=== PATIENT | male | born 1985 | race Caucasian/White ===

== ENCOUNTER 2017-05-30 22:44 | Emergency (ER) | payer OTHER ==
--- NOTE | 2017-05-30 23:38 | ED Physician Documentation ---
General Adult - HISTORIAN Historian: patient - HPI Stated Complaint: LAC Chief Complaint: Laceration/Recheck/Suture Additional Information: 1 cm superficial lac dorsum lt hand working on auto-wrench slipped Onset: hours (1899) Timing: still present (bles significantly dawson at first) Severity: mild Further Comments: yes (disc sutures verses dermabond - pt chose dermabond) Last known Well Code/Unknown Code: Known - ROS CONST: no problems EYES/ENT: none CVS/RESP: none. denies: chest pain, shortness of breath MS/SKIN/LYMPH: none NEURO/PSYCH: denies: headache, fainting, dizziness, tingling, numbness - PAST HX Past History: none Other History: none Surgeries/Procedures: none Immunizations: tetanus (utd), UTD Allergies/Adverse Reactions: Allergies Allergy/AdvReac Type Severity Reaction Status Date / Time Penicillins Allergy Intermediate Hives Verified 05/30/17 22:59 Home Medications: Ambulatory Orders Medication Instructions Recorded NK [NK] 05/30/17 - SOCIAL HX Smoking History: less than 1 pack/day Alcohol Use: none Drug Use: none - FAMILY HX Family History: No - VITAL SIGNS Vital Signs: Vital Signs Temp Pulse Resp BP Pulse Ox 70 16 134/86 98 05/30/17 22:44 05/30/17 22:44 05/30/17 22:44 05/30/17 22:44 - REVIEWED ASSESSMENTS Nursing Assessment Reviewed: Yes Vitals Reviewed: Yes Procedures Wound Location: upper extremity Wound's Depth, Shape: superficial Wound Explored: clean Betadine Prep?: Yes Wound Repaired With: Dermabond ED Results Lab/Radiology - Orders Orders: ED Orders Category Date Time Status Octyseal [Skin Adhesive] NOW Care 05/30/17 23:45 Ordered General Adult Physical Exam - PHYSICAL EXAM GENERAL APPEARANCE: mild distress NECK: normal inspection RESPIRATORY: no resp distress, chest non-tender, breath sounds normal CVS: reg rate & rhythm, heart sounds normal ABDOMEN: soft, non-tender SKIN: warm/dry, normal color. No: diaphoresis, jaundice EXTREMITIES: non-tender, normal range of motion NEURO: oriented X3, motor nml, sensation nml, mood/affect nml Discharge Clincal Impression: 1cm lac dorsum lt hand Referrals: Primary Doctor,No [Primary Care Provider] - 2 Days Comments: keep dry x 3days Condition: Good Disposition: 01 HOME, SELF-CARE Decision to Admit: NO Decision Time: 23:42
[2017-05-31] VITALS: BP 128/74
== END 2017-05-30 23:49 | disposition home or self-care (01) ==
LOC: ED 22:44
DX: S61.412A Laceration without foreign body of left hand, initial encounter (principal); X58.XXXA Exposure to other specified factors, initial encounter; Y93.9 Activity, unspecified; Y99.9 Unspecified external cause status
CPT/HCPCS: 12001; 99283